=== PATIENT | female | born 1960 | race Caucasian/White ===

== ENCOUNTER 2021-04-24 10:12 | Day surgery (SDC) | payer BC ==
[~2021-04-24 10:12] MED LIST: Lactated Ringers 1,000 ML IV SCH
[2021-04-24] MEDS ORDERED: Propofol 200 MG/20 ML SDV ONE ×3 (11:15→12:30)
[2021-04-24] MEDS ORDERED: fentaNYL 100 MCG/2 ML SDV ONE (11:15)
--- NOTE | 2021-04-24 13:16 | OR ---
PREOPERATIVE DIAGNOSIS: History of colon polyps. POSTOPERATIVE DIAGNOSIS: History of colon polyps. PROCEDURE PERFORMED: Colonoscopy. COMPLICATIONS: None. SPECIMENS: None. ESTIMATED BLOOD LOSS: 5 mL. PROCEDURE IN DETAIL: This was done in the endoscopy suite. Sedation was given per Anesthesia. She was placed in left lateral position. First, a rectal exam was done and was normal. Scope was introduced into the rectum and slowly advanced through the rectum, sigmoid, descending, transverse, and ascending colon until the cecum was reached. Upon reaching the cecum, scope was slowly withdrawn looking at all mucosal surfaces on the way out. No mucosal abnormalities, lesions, or polyps were noted. She had moderate sigmoid diverticulosis. FINAL DIAGNOSIS: Sigmoid diverticulosis. BKD: 04/24/2021 12:42:49 MODL: 04/24/2021 12:56:39 /[id number]
== END 2021-04-24 13:42 | disposition home or self-care (01) ==
LOC: VM.SDS 10:12
PROVIDERS: ATTEND Surgery
DX: Z12.11 Encounter for screening for malignant neoplasm of colon (principal); K57.30 Diverticulosis of large intestine without perforation or abscess without bleeding; E78.5 Hyperlipidemia, unspecified; Z86.010 Personal history of colon polyps; Z79.899 Other long term (current) drug therapy
CPT/HCPCS: 00812; J2704; J3010; J7120